=== PATIENT | female | born 1950 | race Caucasian/White ===

== ENCOUNTER 2020-04-14 16:25 | Emergency (ER) | payer MEDICARE, OTHER ==
[~2020-04-14 16:25] MED LIST: 8 HOUR650 MG PO; AMITRIPTYLINE150 MG PO; ASPIRIN EC81 MG PO; CEFDINIR300 M1 PO; CRESTOR40 MG PO; DONEPEZIL HCL5 MG PO; DULOXETINE HCL20 MG PO; FLUTICASONE PRO16 GM INH; HCTZ12.5 MG PO; KEFLEX500 MG PO; MELATIN3 MG PO; NAPROXEN250 MG PO; NEXIUM20 MG PO; NORCO 5-325 TA1 EAC1 PO; PREDNISONE 20MG20 MG PO; PREGABALIN50 MG PO; PREVAGEN PO; PROBIOTIC1 EAC1 PO; PROBIOTIC1 EAC3 PO; PROMETHAZINE-D118 ML PO; TRAMADOL HCL50 MG PO; VENTOLIN HFA IN18 GM INH; VITAMIN B-121000 MC1 PO; VOLTAREN100 GM TOP; prevagen
[2020-04-14] MEDS ORDERED: PREGABALIN50 MG PO (16:26)
[2020-04-14] MEDS ORDERED: NORCO 5/3251 EACH PO (16:26)
[2020-04-14 18:52] LABS: BASOPHIL 0.6 % (0-2); EOSINOPHIL 2.1 % (0-7); HCT 36.9 % (37.0-47.0); LYMPHOCYTE 27.4 % (15-48); MCH 31.6 pg (25.0-31.0); MCHC 32.5 g/dL (32.0-36.0); MCV 97.1 fL (78.0-100.0); MONOCYTE 5.9 % (0-12); NEUTROPHIL 63.7 % (41-80); NRBC 0; PLT 199 K/uL (150-400); RDW 13.8 % (11.5-14.0); WBC 6.3 K/uL (4.0-10.5)
[2020-04-14 19:10] LABS: PRO-BNP 140 pg/mL (<125)
[2020-04-14 19:16] LABS: ALBUMIN 3.8 g/dL (3.4-5.0); BILIRUBIN - TOTAL 0.2 mg/dL (0.2-1.0); BUN/CREAT RATIO (CALC) 9.8 RATIO; CREATININE 1.12 mg/dL (0.51-0.95); GLOBULIN (CALCULATION) 4.6 g/dL; POTASSIUM 3.5 mmol/L (3.5-5.1); TOTAL PROTEIN 8.4 g/dL (6.4-8.2)
[2020-04-14 19:32] LABS: BILIRUBIN NEGATIVE (NEGATIVE); BLOOD NEGATIVE Ery/uL (NEGATIVE); CLARITY CLEAR (CLEAR); COLOR YELLOW (YELLOW); GLUCOSE (U) NORMAL (NORMAL); LEUKOCYTES NEGATIVE Leu/uL (NEGATIVE); NITRITE NEGATIVE (NEGATIVE); PROTEIN NEGATIVE (NEGATIVE); SPECIFIC GRAVITY <=1.005 (1.001-1.030); UROBILINOGEN 0.2 mg/dL (0.2-1.0)
[2020-06-09] MEDS ORDERED: NORCO 5/3251 EACH PO (15:21)
[2020-08-04] MEDS ORDERED: NORCO 5/3251 EACH PO (14:33)
[2020-09-27] MEDS ORDERED: NORCO 5/3251 EACH PO (09:47)
== END 2020-04-14 21:09 | disposition home or self-care (01) ==
LOC: FER 16:25
PROVIDERS: Emergency Medicine
DX: I10 Essential (primary) hypertension (principal); R79.89 Other specified abnormal findings of blood chemistry; Z88.5 Allergy status to narcotic agent
CPT/HCPCS: 36415; 80053; 81003; 82728; 83880; 84484; 85025; 93005; 99283; G0463

== ENCOUNTER 2020-08-02 20:33 | Emergency (ER) | payer MEDICARE, OTHER ==
[~2020-08-02 20:33] MED LIST changes: +NORCO 5/3251 EACH PO
[2020-08-04] MEDS ORDERED: NORCO 5/3251 EACH PO (14:33)
[2020-09-27] MEDS ORDERED: NORCO 5/3251 EACH PO (09:47)
[2020-12-06] MEDS ORDERED: NORCO 5/3251 EACH PO (15:22)
== END 2020-08-02 23:27 | disposition home or self-care (01) ==
LOC: FER 20:33
DX: S61.217A Laceration without foreign body of left little finger without damage to nail, initial encounter (principal); I10 Essential (primary) hypertension; W26.9XXA Contact with unspecified sharp object(s), initial encounter; Y92.009 Unspecified place in unspecified non-institutional (private) residence as the place of occurrence of the external cause

== ENCOUNTER 2021-03-04 11:43 | Emergency (ER) | payer MEDICARE ==
[2021-03-04 12:12] LABS: BASOPHIL 0.6 % (0-2); EOSINOPHIL 1.2 % (0-7); HCT 37.6 % (37.0-47.0); HGB 12.3 g/dl (12.5-16.0); LYMPHOCYTE 28.8 % (15-48); MCH 31.6 pg (25.0-31.0); MCHC 32.7 g/dL (32.0-36.0); MCV 96.7 fL (78.0-100.0); MONOCYTE 9.1 % (0-12); MPV 9.5 fL (6.0-9.5); NEUTROPHIL 59.9 % (41-80); NRBC 0; PLT 183 K/uL (150-400); RBC 3.89 M/uL (4.20-5.40); RDW 14.6 % (11.5-14.0); WBC 4.9 K/uL (4.0-10.5)
[2021-03-04 12:37] LABS: PROTHROMBIN TIME 12.6 SECONDS (11.8-13.4)
[2021-03-04 12:38] LABS: PTT 27.6 SECONDS (24.4-34.7)
[2021-03-04 12:40] LABS: ALBUMIN 3.7 g/dL (3.4-5.0); BILIRUBIN - TOTAL 0.2 mg/dL (0.2-1.0); BUN/CREAT RATIO (CALC) 14.5 RATIO; CREATININE 1.31 mg/dL (0.51-0.95); POTASSIUM 5.1 mmol/L (3.5-5.1); TOTAL PROTEIN 7.7 g/dL (6.4-8.2)
[2021-03-04 13:17] LABS: BILIRUBIN NEGATIVE (NEGATIVE); BLOOD NEGATIVE Ery/uL (NEGATIVE); CLARITY CLEAR (CLEAR); COLOR YELLOW (YELLOW); GLUCOSE (U) NORMAL (NORMAL); LEUKOCYTES NEGATIVE Leu/uL (NEGATIVE); NITRITE NEGATIVE (NEGATIVE); PROTEIN NEGATIVE (NEGATIVE); UROBILINOGEN 0.2 mg/dL (0.2-1.0); pH 6.5 (5.0-9.0)
[2021-03-04 13:22] LABS: CORONAVIRUS 2019 SARS-COV-2 NEGATIVE (NEGATIVE); INFLUENZA A NAA NEGATIVE (NEGATIVE)
== END 2021-03-04 16:35 | disposition other institution (70) ==
LOC: FER 11:43
PROVIDERS: Emergency Medicine
DX: I63.9 Cerebral infarction, unspecified (principal); R47.01 Aphasia; R29.707 NIHSS score 7; I10 Essential (primary) hypertension; Z86.73 Personal history of transient ischemic attack (TIA), and cerebral infarction without residual deficits; Z79.82 Long term (current) use of aspirin; Z88.6 Allergy status to analgesic agent; Z20.822 Contact with and (suspected) exposure to COVID-19
CPT/HCPCS: 36415; 70450; 71045; 80053; 81003; 84484; 85025; 85610; 85730; 93005; J3490; J7030; Q9967; U0002

== ENCOUNTER 2021-05-18 10:34 | Emergency (ER) | payer MEDICARE, OTHER ==
[2021-05-18 12:32] LABS: BILIRUBIN NEGATIVE (NEGATIVE); BLOOD 3+ Ery/uL (NEGATIVE); CLARITY CLOUDY (CLEAR); COLOR YELLOW (YELLOW); GLUCOSE (U) NORMAL (NORMAL); LEUKOCYTES 1+ Leu/uL (NEGATIVE); NITRITE POSITIVE (NEGATIVE); PROTEIN 1+ mg/dL (NEGATIVE); SPECIFIC GRAVITY 1.025 (1.001-1.030); UROBILINOGEN 0.2 mg/dL (0.2-1.0)
[2021-05-18 12:58] LABS: URINARY WBC TNTC
[2021-05-18 12:59] LABS: URINARY RBC 20-50
[2021-05-18 13:03] LABS: BACTERIA 3+
[2021-05-18] MEDS ORDERED: KEFLEX250 MG PO (13:12)
== END 2021-05-18 13:13 | disposition home or self-care (01) ==
LOC: FER 10:34
PROVIDERS: Emergency Medicine
DX: N30.90 Cystitis, unspecified without hematuria (principal); Z88.5 Allergy status to narcotic agent
CPT/HCPCS: 81001; 99283